=== PATIENT | male | born 1985 | race African-American/Black ===

== ENCOUNTER 2016-10-17 10:55 | Emergency (ER) | payer SELFPAY ==
[~2016-10-17] VITALS: Ht 175.3 cm; Wt 70.0 kg
[2016-10-17 11:36] VITALS: BP 124/75
[2016-10-17] MEDS ORDERED: AZITHROMYCIN 500 MG TABLET PO ONE (15:00)
[2016-10-17] MEDS ORDERED: CEFTRIAXONE SODIUM 250 MG/VIAL IM ONE (15:00)
[2016-10-17 15:17] LABS: CLARITY URINE CLEAR (CLEAR); COLOR URINE YELLOW (YELLOW); GLUCOSE URINE NEGATIVE (NEGATIVE); KETONES URINE NEGATIVE (NEGATIVE); LEUKOCYTE ESTERASE URINE NEGATIVE (NEGATIVE); NITRITE URINE NEGATIVE (NEGATIVE); OCCULT BLOOD URINE NEGATIVE (NEGATIVE); PH URINE 6.5 (4.5-8.0); PROTEIN URINE NEGATIVE (NEGATIVE); SPECIFIC GRAVITY URINE 1.021 (1.005-1.030); UROBILINOGEN URINE 0.2 E.U./dL (0.2-1.0)
== END 2016-10-17 16:59 | disposition left against medical advice (07) ==
LOC: ER 10:55
DX: N34.2 Other urethritis (principal); I10 Essential (primary) hypertension; F12.10 Cannabis abuse, uncomplicated
CPT/HCPCS: 81003; 87086; 87591; 96372; 99284; J0696; Z7610